=== PATIENT | male | born 1960 | race Caucasian/White ===

== ENCOUNTER 2024-04-12 12:49 | Emergency (ER) | payer OTHER, SELFPAY ==
[2024-04-12 12:51] VITALS: BP 157/90
[2024-04-12 13:01] VITALS: BMI 30.8
[2024-04-12] MEDS: MOTRIN 400 MG PO (16:37)
[2024-04-12] MEDS: PERCOCET 5/325 1 TABLET PO (16:39)
--- NOTE | 2024-04-12 18:09 | ED.GENMED ---
History of Present Illness
General
Chief Complaint: Musculo-Skeletal Complaint
Source: patient
Exam Limitations: none
Time Seen by Provider: 04/12/24 14:05
Nursing documentation reviewed up to this point in time: agreed with
History of Present Illness
History of Present Illness:
Patient presents to ED secondary to worsening shoulder pain and neck pain, after losing balance and falling down the hill 3 weeks ago. Patient has seen his chiropractor multiple times and received treatment, without improvement symptoms. Denies
loss of sensation or weakness. Denies head pain. Denies difficulty breathing. Denies leg pain or swelling. Denies difficulty with ambulation.
Past History
Past History
ED Past Medical History: GERD, HTN, Hypercholesterolemia and Other (Diverticulitis)
ED Past Surgical History: None
Social History
Tobacco: Smoker
Personal:
Living: with family
Employment: Not employed
Family History
Family History: Early CAD and CAD
Review of Systems
Review of Systems
Allergies reviewed?: Yes
All Other Systems: ROS reviewed and negative except as documented in HPI and ROS
Constitutional: Reports no symptoms
Respiratory: Denies trouble breathing
Cardiac: Reports no symptoms
ABD/GI: Reports no symptoms
Musculoskeletal: Reports neck pain and other (shoulder pain)
Skin: Reports no symptoms
Neurological: Reports no symptoms; Denies weakness or numbness
Phy Exam
Physical Exam
Physical Exam:
Physical Exam
General: no apparent distress, not acutely ill. afebrile
Head: nc/at. eomi
Neck: supple. no midline tenderness. mild right para-cervical tenderness at base of neck, without obvious deformity.
Heart: s1/s2 regular rate and rhythm, no murmur. equal radial pulses.
Lungs: no acute respiratory distress. clear bilaterally
Abdomen: normal bowel sounds. not tender.
Neuro: alert and oriented. no focal neurological deficits
Skin: no rash
Psychiatric: well kept. interactive and cooperative
Extremities: mild diffuse b/l shoulder tenderness to palpation.
Course
Orders/Labs/Results
Orders:
Orders
04/12/24 16:00
Ibuprofen [Motrin] 400 mg PO NOW STA
Oxycodone/Acetaminophen [Percocet 5/325] 1 tablet PO NOW STA
CR Cervical Spine 2 or 3 Vw Urgent
Reason For Exam: trauma
CR Shoulder, Trauma - Left Urgent
Reason For Exam: trauma
04/12/24 16:29
CR Shoulder, Trauma - Right Urgent
Reason For Exam: trauma
Vital Signs
Initial and Last Documented VS:
Initial Vital Signs
Temp Pulse Resp BP Pulse Ox
98 F 115 16 157/90 95
04/12/24 12:51 04/12/24 12:51 04/12/24 12:51 04/12/24 12:51 04/12/24 12:51
Last Documented Vital Signs
Temp Pulse Resp BP Pulse Ox
98 F 115 16 157/90 95
04/12/24 12:51 04/12/24 12:51 04/12/24 12:51 04/12/24 12:51 04/12/24 12:51
MDM/Problems Addressed
MDM/Problems Addressed:
X-ray report reviewed and discussed with patient, including need for urgent outpatient follow-up with further studies, including MRI cervical spine as well as CT chest. As patient currently is in the midst of finding new primary care physician,
discussed with on-call photographic process screen maker, Dr. Armas. Pulmonology office will contact patient at home this week for expedited outpatient workup. Patient advised to refrain from any further chiropractic management or manipulation until further testing is
obtained. Patient otherwise is afebrile, hemodynamically stable, neurologically intact and without any acute distress at time of discharge, to the care of his family.
*Critical Care Note
Total Time (30-74mins, 75-104mins- exclusive of procedures): Not Applicable
ED Attending Note
-
Portions of this chart may have been created with voice recognition software.� Occasional wrong word or��sound alike� substitutions may have occurred due to the inherent limitations of voice recognition software.
Discharge Plan
Departure
Patient Disposition: Home (Routine Discharge)
Date of Disposition: 04/12/24
Time of Disposition: 18:09
Patient with high blood pressure during this ER visit?: Yes
Discharge Problem:
Shoulder pain, Abnormal x-ray
Instructions: Shoulder Pain ED
Prescriptions:
New
oxycodone-acetaminophen [Percocet] 5-325 mg Tablet
1 tab PO Q6HPRN PRN (Reason: pain) Qty: 12 0RF
methylprednisolone [Medrol (Grant)] 4 mg tablets,dose pack
4 mg PO DAILY Qty: 21 0RF
No Action
ascorbic acid (vitamin C) [Vitamin C] 500 MG tablet
500 mg PO DAILY
B-complex with vitamin C 1 CAPLET tablet
1 cap PO DAILY
acetaminophen 325 MG tablet
650 mg PO Q6HPRN PRN (Reason: mild pain/ fever>100.5F) 0RF
Ca-D3-mag rp-oxrl-zjl-iman-bor [Calcium 600-D3 Plus (mag-zinc)] 1 EACH tablet
1 ea PO DAILY
vitamin E (dl, acetate) 400 UNITS capsule
400 units PO DAILY
sildenafil [Viagra] 100 MG tablet
100 mg PO PRN PRN (Reason: sex)
diazepam 10 MG tablet
10 mg PO Q8H PRN (Reason: anxiety)
hydrocodone-acetaminophen 1 TABLET tablet
1 tab PO Q4HPRN PRN (Reason: moderate to severe pain) Qty: 25 0RF
Referrals:
Francisco Kebede MD [Family Provider] -
Renita Armas, [Active] -
Activity Restrictions/Additional Instructions:
As discussed, please follow-up with referred photographic process screen maker for further evaluation and treatment. Your prescriptions have been sent electronically to [facility] pharmacy in [place].
Interventions
Interventions:
*Risk Screen - Suicide Last Done: 04/12/24 12:54
*General Assessment Last Done: 04/12/24 12:54
*Neglect/Abuse Screening Last Done: 04/12/24 12:54
ED- Fall Risk Assessment Last Done: 04/12/24 13:01
*ED COVID-19 Vaccine History Last Done: 04/12/24 13:01
ED-Musculoskeletal Assessment Last Done: 04/12/24 13:01
Discharge Date and Time
Print Language: AZERI
[2024-04-12 18:32] VITALS: BP 142/85
== END 2024-04-12 16:32 | disposition home or self-care (01) ==
LOC: EMR 12:49
PROVIDERS: EMERGENCY PHYSICIAN Emergency Medicine; FAMILY PHYSICIAN Family Medicine
DX: M25.511 Pain in right shoulder (principal); R93.89 Abnormal findings on diagnostic imaging of other specified body structures; W17.81XA Fall down embankment (hill), initial encounter; I10 Essential (primary) hypertension; F17.200 Nicotine dependence, unspecified, uncomplicated
CPT/HCPCS: 99283; 72040; 73030

== ENCOUNTER → 2024-04-24 15:04 | Outpatient (REF) | payer OTHER, SELFPAY | LOC: HWRAD 15:04 | PROVIDERS: ATTENDING PHYSICIAN Internal Medicine Critical Care Medicine; FAMILY PHYSICIAN Family Medicine | DX: R91.1 Solitary pulmonary nodule (principal) | CPT/HCPCS: 71250 ==